=== PATIENT | female | born 1960 | race Caucasian/White ===

== ENCOUNTER 2018-08-10 23:57 | Emergency (ER) | payer OTHER ==
[~2018-08-10] VITALS: Ht 162.6 cm; Wt 110.0 kg
[2018-08-10 23:59] VITALS: BP 129/81
[2018-08-11] MEDS ORDERED: ACETAMINOPHEN 325 MG TABLET ONE (00:27)
[2018-08-11] MEDS ORDERED: ACETAMINOPHEN 325 MG TABLET PO ONE (00:30)
[2018-08-11] MEDS ORDERED: BACITRACIN ZINC OINT 500U/GM, 0.9 GM ONE (01:47)
== END 2018-08-11 02:10 | disposition home or self-care (01) ==
LOC: ED 08-11 02:04
DX: S80.02XA Contusion of left knee, initial encounter (principal); G89.11 Acute pain due to trauma; W01.0XXA Fall on same level from slipping, tripping and stumbling without subsequent striking against object, initial encounter; Y93.89 Activity, other specified; Y92.89 Other specified places as the place of occurrence of the external cause; Y99.8 Other external cause status
CPT/HCPCS: 99284